=== PATIENT | female | born 1945 | race Caucasian/White ===

== ENCOUNTER → 2016-07-30 | Outpatient (CLI) | payer OTHER, BC | LOC: BMCIMAGING 09:39 | PROVIDERS: ATTEND Orthopaedic Surgery | DX: M25.551 Pain in right hip (principal) ==

== ENCOUNTER → 2017-01-20 | Outpatient (CLI) | payer OTHER, BC | LOC: BMCIMAGING 09:04 | PROVIDERS: ATTEND Orthopaedic Surgery | DX: M16.11 Unilateral primary osteoarthritis, right hip (principal) ==

== ENCOUNTER → 2017-03-10 | Outpatient (CLI) | payer OTHER, BC | LOC: BHFA 11:00 | PROVIDERS: ATTEND Internal Medicine Cardiovascular Disease | DX: R07.9 Chest pain, unspecified (principal) ==

== ENCOUNTER → 2017-06-25 | Outpatient (CLI) | payer OTHER | LOC: CIMAGING 07:24 | PROVIDERS: ATTEND Internal Medicine Gastroenterology | DX: K76.89 Other specified diseases of liver (principal); K22.4 Dyskinesia of esophagus | CPT/HCPCS: 76705-PO ==

== ENCOUNTER → 2017-12-01 | Outpatient (CLI) | payer OTHER | LOC: BMCIMAGING 10:18 | PROVIDERS: ATTEND Orthopaedic Surgery | DX: M25.551 Pain in right hip (principal); M16.11 Unilateral primary osteoarthritis, right hip ==

== ENCOUNTER → 2017-12-21 | Outpatient (CLI) | payer OTHER ==
[~2017-12-21] MED LIST: IOPAMIDOL (ISOVUE-300) 100 ML BTL ONE
== END ==
LOC: FIMAGING 13:04
PROVIDERS: ATTEND Internal Medicine
DX: R10.9 Unspecified abdominal pain (principal); K57.30 Diverticulosis of large intestine without perforation or abscess without bleeding; K42.9 Umbilical hernia without obstruction or gangrene
CPT/HCPCS: 74178; Q9967; 82565-PO

== ENCOUNTER 2018-01-02 23:11 | Inpatient (IN) | payer OTHER ==
[2018-01-02] MEDS ORDERED: NS 1,000 ML IV ONE (23:35)
[2018-01-02] MEDS ORDERED: fentaNYL 100 MCG/2 ML INJ IVP ONE (23:35)
[2018-01-02 23:41] LABS: PLATELET COUNT 213 10^3/uL (150-400)
[2018-01-03] MEDS ORDERED: IOPAMIDOL (ISOVUE 370) 100 ML BTL IV ONE
[2018-01-03] MEDS ORDERED: HYDROmorphONE/DILAUDID 2 MG/ML INJ IVP ONE (00:28)
[2018-01-03] MEDS ORDERED: ONDANSETRON 4 MG/2 ML VIAL IVP ONE (00:29)
--- NOTE | 2018-01-03 00:49 | EDPHY ---
HPI/HX/ROS/PE/MDM Narrative: CLINICAL IMPRESSION: Large reji-umbilical hernia, abdominal pain ASSESSMENT/PLAN: 72-year-old female with past medical history of hypothyroidism presents to the emergency department with increased abdominal pain tonight since 9:00 p.m. In the setting of abdominal pain x2 weeks. Patient had a CT scan on the of this month showing a new reji umbilical hernia and mesenteric edema. She has generalized abdominal pain today, more so to the periumbilical region and right lower quadrant on initial exam associated with guarding. She reports no fevers , chills, nausea, vomiting, diarrhea, or constipation. Labs show no leukocytosis, electrolyte imbalance, metabolic disturbance, and a mild renal insufficiency of 1.1. Repeat CT scan tonight shows increased size of a large 5 cm reji umbilical hernia that has increased by 4 mm of the last 2 weeks and now contains a portion of the transverse colon as well as mesenteric whirling. CT images reviewed with general surgeon, Dr. De La Vega. Patient is requiring IV analgesics for pain control and has elected to be admitted to the hospital for pain management and surgical discussion. Surgeon to see the patient in the ED. Patient comfortable and stable at time of reassessment. Discussed with Dr. Wilkinson. DIFFERENTIAL DX: Abdominal pain includes but not limited to acute incarcerated hernia, diverticulitis, cholecystitis, pancreatitis, SBO, gastroenteritis, constipation ED PROCEDURES: See imaging and lab results below ED COURSE: 12:45 a.m.: Received a call from Dr. Pendleton with Radiology. CT interpretation compared to CT on the revealing central mesenteric edema with a new periumbilical hernia that at the time contained a portion of the gastric antrum. Dr. Pendleton reports that that now contains a portion of the transverse colon with an attached portion of a mesenteric vessel. There is increased neck diastasis of 45 mm and mesenteric whirling which may indicate an internal hernia. Page out to surgery to discuss. 0100am. Discussed with Dr. De La Vega who reviewed the CT scan. He offered admission with surgical consultation and repair or d/c with pain meds and outpatient surgical consultation and elective repair. Patient and her are discussing options. CHIEF COMPLAINT: Abdominal pain HPI: This is a 72-year-old female who presents to the emergency department tonight with complaints of worsening abdominal pain since 9:00 p.m.. Patient has been struggling with generalized abdominal pain for the last 2 weeks. She had a CT scan on the 13 of this month ordered by her primary care showing a new reji umbilical hernia, changes possibly consistent with chronic pancreatitis which she and her primary care do not believe is valid, and diverticulosis. Tonight while watching TV she developed worsening pain and cramping. Pain radiates to her low back and pelvic region. No associated fever, chills, nausea, vomiting, diarrhea, bloody stools. She had a normal bowel movement this morning. She has been unable to pass flatus. No complaints of dysuria urgency or abnormal vaginal discharge. No history of SBO but she has had prior hysterectomy, appendectomy, and removal of a benign retroperitoneal cyst 1 year ago at the [facility]. PMH: Hypothyroidism Pertinent Past Surgical History: Appendectomy, hysterectomy, removal of benign retroperitoneal cyst Family History: Noncontributory Social History: , lives with her REVIEW OF SYSTEMS: All other systems negative Constitutional: No fever, no chills, appetite change. Cardiovascular: No chest pain, no palpitations. Respiratory: No cough, no shortness of breath. Gastrointestinal: no vomiting, diarrhea. Genitourinary: No hematuria, dysuria, flank pain, pelvic pain Musculoskeletal: joint swelling, joint pain, myalgias. Skin: No rashes, color change. Neurological: No headache, dizziness, weakness. PHYSICAL EXAM: General Appearance: Alert, oriented, appropriate, cooperative, NAD, well hydrated, non-toxic appearing, VSS, appears uncomfortable, tearful no hypoxia. Respiratory: There are no retractions, lungs are clear to auscultation. Cardiac: Regular rate and rhythm, no murmurs or gallops. Gastrointestinal: Abdomen is soft, generalized tenderness throughout, worse periumbilical and right lower quadrant. I am unable to appreciate an obvious periumbilical or ventral wall cyst but patient reports this is more noticeable when she stands up. bowel sounds normal, no masses/hernia, no rigidity. + guarding Neurological: [ Alert and oriented x 3, CN 2-12 grossly intact Skin: Warm, dry, no rashes, no nodules on palpation. Musculoskeletal: Extremities are symmetrical, full range of motion, no tenderness, deformity, swelling, or erythema. Psychiatric: Patient is oriented X 3, there is no agitation. MEDICAL DECISION MAKING: Patient was seen independently. Secondary supervising physician at time of evaluation was Dr Wilkinson. Diagnosis: Large periumbilical hernia, abdominal pain . New, requires workup Summary: See Assessment and Plan for summary of ED visit Clinical lab tests: ordered / reviewed. Independent visualization of images, tracing, or specimens: Yes. Review / Summarize previous medical records: Reviewed recent chart notes and previous CT report. Discussed patient with another provider: Dr. Pendleton, Dr. Wilkinson, Dr. De La Vega Patient Progress: Stable. (Rusty Moore) PHYSICIAN DOCUMENTATION: The patient was evaluated and managed by the Physician Datastage Architect. My co- signature indicates that I have reviewed this chart and I agree with the findings and plan of care as documented. I am the secondary supervising physician. (Callie Wilkinson) - Data Points Imaging Results: Imaging Impressions Abdomen CT 01/02/18 23:53 Impression: 1. There is a supraumbilical ventral wall hernia with slightly more pronounced diastasis than the study 2 weeks ago, and now containing a small "knuckle" of the transverse colon and an associated mesenteric vessel, as well as omental fat. 2. Interval development of central mesenteric edema with some subtle "whirling" of the mesenteric vasculature, raising the possibility of a concurrent developing internal hernia. 3. Stable hepatic cysts. 4. Constipation with descending colon and sigmoid colon diverticulosis, but no active diverticulitis. 5. By report, prior appendectomy, and evidence of a prior hysterectomy. The patient has also had resection of a prior large left retroperitoneal cyst since 2016. Findings were discussed with Rusty Moore PA-C at 0:41, on 01/03/2018. Laboratory Results: Laboratory Results 01/02/18 23:20 01/02/18 23:20 01/02/18 01/02/18 23:20 23:20 WBC 6.47 10^3/uL 10^3/uL (3.80-9.50) RBC 4.25 10^6/uL 10^6/uL (4.18-5.33) Hgb 13.3 g/dL g/dL (12.6-16.3) Hct 38.9 % % (38.0-47.0) MCV 91.5 fL fL (81.5-99.8) MCH 31.3 pg pg (27.9-34.1) MCHC 34.2 g/dL g/dL (32.4-36.7) RDW 13.7 % % (11.5-15.2) Plt Count 213 10^3/uL 10^3/uL (150-400) MPV 10.5 fL fL (8.7-11.7) Neut % (Auto) 41.1 % % (39.3-74.2) Lymph % (Auto) 45.7 % H % (15.0-45.0) [place] % (Auto) 8.8 % % (4.5-13.0) Eos % (Auto) 3.4 % % (0.6-7.6) Baso % (Auto) 0.8 % % (0.3-1.7) Nucleat RBC Rel Count 0.0 % % (0.0-0.2) Absolute Neuts (auto) 2.66 10^3/uL 10^3/uL (1.70-6.50) Absolute Lymphs (auto) 2.96 10^3/uL 10^3/uL (1.00-3.00) Absolute Monos (auto) 0.57 10^3/uL 10^3/uL (0.30-0.80) Absolute Eos (auto) 0.22 10^3/uL 10^3/uL (0.03-0.40) Absolute Basos (auto) 0.05 10^3/uL 10^3/uL (0.02-0.10) Absolute Nucleated RBC 0.00 10^3/uL 10^3/uL (0-0.01) Immature Gran % 0.2 % % (0.0-1.1) Immature Gran # 0.01 10^3/uL 10^3/uL (0.00-0.10) Sodium 139 mEq/L mEq/L (135-145) Potassium 4.2 mEq/L mEq/L (3.3-5.0) Chloride 108 mEq/L mEq/L (97-110) Carbon Dioxide 22 mEq/l mEq/l (22-31) Anion Gap 9 mEq/L mEq/L (6-14) BUN 32 mg/dL H mg/dL (7-23) Creatinine 1.1 mg/dL H mg/dL (0.6-1.0) Estimated GFR 49 Glucose 101 mg/dL H mg/dL (70-100) Calcium 10.1 mg/dL mg/dL (8.5-10.4) Total Bilirubin 0.4 mg/dL mg/dL (0.1-1.4) Conjugated Bilirubin 0.2 mg/dL mg/dL (0.0-0.5) Unconjugated Bilirubin 0.2 mg/dL mg/dL (0.0-1.1) AST 16 IU/L IU/L (14-46) ALT 21 IU/L IU/L (9-52) Alkaline Phosphatase 75 IU/L IU/L (38-126) Total Protein 6.9 g/dL g/dL (6.3-8.2) Albumin 4.2 g/dL g/dL (3.5-5.0) Lipase 67 IU/L IU/L (23-300) Medications Given: Hydromorphone HCl (Dilaudid) 0.2 - 0.4 mg IVP Q1H PRN PRN Reason: Pain, Severe Unable to Take PO Stop: 01/13/18 01:30 Last Admin: 01/03/18 04:39 Dose: 0.4 mg Potassium Chloride/Dextrose/Sod Cl (D5w 1/2 Ns W/ 20 Kcl/L) 1,000 mls @ 100 mls /hr IV CONT MILLI Stop: 07/02/18 01:44 Last Admin: 01/03/18 02:51 Dose: 1,000 mls Discontinued Medications Fentanyl (Sublimaze) 50 mcg IVP EDNOW ONE Stop: 01/02/18 23:36 Last Admin: 01/02/18 23:40 Dose: 50 mcg Hydromorphone HCl (Dilaudid) 1 mg IVP EDNOW ONE Stop: 01/03/18 00:29 Last Admin: 01/03/18 00:35 Dose: 1 mg Sodium Chloride (Ns) 1,000 mls @ 0 mls/hr IV EDNOW ONE; Wide Open PRN Reason: Protocol Stop: 01/02/18 23:36 Last Admin: 01/02/18 23:42 Dose: 1,000 mls Ondansetron HCl (Zofran) 4 mg IVP EDNOW ONE Stop: 01/03/18 00:30 Last Admin: 01/03/18 00:33 Dose: 4 mg Promethazine HCl (Phenergan) 12.5 mg IVP EDNOW ONE Stop: 01/03/18 01:35 Last Admin: 01/03/18 01:36 Dose: 12.5 mg General Time Seen by Provider: 01/02/18 23:25 Initial Vital Signs: Initial Vital Signs Temperature (C) 36.3 C 01/02/18 23:15 Heart Rate 68 01/02/18 23:15 Respiratory Rate 20 01/02/18 23:15 Blood Pressure 156/82 H 01/02/18 23:15 O2 Sat (%) 99 01/02/18 23:15 O2 Delivery Mode Nasal Cannula O2 (L/minute) 2 Allergies/Adverse Reactions: latex Allergy (Verified 04/28/15 16:36) Home Medications: Medication Instructions Recorded Albuterol [Proventil Inhaler HFA 1 - 2 puffs IH Q4 #1 mdi 04/28/15 (*)] Codeine/Promethazine [Phenergan W/ 5 - 10 ml PO HS PRN #100 ml 04/28/15 Codeine Syrup] Levothyroxine 04/28/15 Doxycycline Calcium 01/02/18 Prilosec 01/02/18 Departure - Departure Disposition: [facility] Inpatient Acute Clinical Impression: Periumbilical hernia Abdominal pain Qualifiers: Abdominal location: periumbilical Qualified Code(s): R10.33 - Periumbilical pain Condition: Fair
[2018-01-03] MEDS ORDERED: PROMETHAZINE HCL 25 MG/ML INJ IVP PRN ×2 (01:31→13:17)
[2018-01-03] MEDS ORDERED: METOCLOPRAMIDE 10 MG/2 ML VIAL IVP PRN (01:31)
[2018-01-03] MEDS ORDERED: PROMETHAZINE HCL 25 MG/ML INJ ONE ×2 (01:33→13:57)
[2018-01-03] MEDS ORDERED: PROMETHAZINE HCL 25 MG/ML INJ IVP ONE (01:34)
--- NOTE | 2018-01-03 02:07 | GHP ---
DATE OF ADMISSION: 01/03/2018 CHIEF COMPLAINT: Abdominal pain. HISTORY OF PRESENT ILLNESS: This is a 72-year-old female, who over the last 3-4 weeks, has been havi ng abdominal pain. As an outpatient on the of this month, her PCP ordered a CT scan, which show ed an epigastric hernia consistent with an incisional hernia from her previous retroperitoneal mass e xcision performed in September of 2015. The patient states that she felt well earlier this evening, beg an to have some right lower quadrant pain. This pain persisted which prompted her presentation here. Here, in the emergency department, she has been medicated and feels somewhat better, although she s till complains of sort of vague pain almost everywhere, worse in the epigastrium with palpation. The re is no radiation. The pain is 7/10 in its worst intensity. It is 2 to 3 out of 10 after IV narcot ics. There are no associated nausea, vomiting, fevers, or chills. She mainly just wants the pain to go away. PAST MEDICAL HISTORY: Significant for rosacea, hypothyroid, asthma, and gout. PAST SURGICAL HISTORY: Appendectomy, hysterectomy, and a retroperitoneal mass excision. CURRENT MEDICATIONS: Include doxycycline, EpiPen, Levoxyl, nitroglycerin, omeprazole, ProAir, Metamu cil, and ranitidine. ALLERGIES: Animal dander, eggplant, kiwi. SOCIAL HISTORY: Here with . Denies illicit drug use. Retired. FAMILY HISTORY: Noncontributory. REVIEW OF SYSTEMS: A full 10-point review was performed. PHYSICAL EXAMINATION: VITAL SIGNS: Temperature is 36.3, blood pressure 144/70, heart rate of 60, an d she is 97% on 2 L nasal cannula. CONSTITUTIONAL: She appears tired, but otherwise comfortable. E YES: Her pupils are equal, round, reactive to light, and accommodation. Her extraocular movements a re intact. She has anicteric sclerae. EARS, NOSE, MOUTH, THROAT: She has dry mucous membranes. He r hearing is normal and her ears appear normal. CARDIOVASCULAR: She has a regular rate and rhythm w ithout any murmurs, rubs, or gallops. RESPIRATORY: She has no respiratory distress, rales, or rhonc hi. GI: She has hypoactive bowel sounds. She has an epigastric hernia consistent with CT scan, red ucible. Her abdomen is otherwise soft. Skin is warm, normal color. No rashes or abrasions. MUSCUL OSKELETAL: Full strength. No tenderness. Normal joint range of motion. NEUROLOGIC: She is alert and oriented x3. Her cranial nerves 2-12 are intact. PSYCH: She is interacting appropriately. She is not anxious or encephalopathic. LYMPH/HEME/IMMUNOLOGIC: She has no cervical, groin, or supracla vicular lymphadenopathy appreciated. LABS: Chemistry is remarkable for an elevated BUN and creatinine 32 and 1.1. H and H are stable at 13 and 39, white count is normal at 6, platelets are 213. IMAGING: Includes a CT scan of the abdomen and pelvis, the images of which were personally reviewed, which shows a 4.5 cm epigastric hernia containing transverse colon. No other significant findings. ASSESSMENT AND PLAN: 72-year-old female with incisional hernia containing bowel. I gave the patient the option, as she is nontoxic, to present as an outpatient versus inpatient repair. She would like to have it repaired as soon as possible and is continuing to have pain in the emergency room. We wi ll plan to admit her and plan for open incisional hernia repair as time permits. I discussed the pro cedure with her and her here in the emergency department today, and I discussed my plan with the provider taking care of the patient in the emergency room. /[id number]/MODL
[2018-01-03] MEDS: D5W 1/2 NS W/ 20 KCl/L 1,000 ML IV SCH (02:51)
[2018-01-03] MEDS: HYDROmorphONE/DILAUDID 1 MG/ML INJ IVP PRN ×5 (03:36→20:13)
[2018-01-03] MEDS: DOXYCYCLINE HYCLATE 100 MG CAP/TAB PO SCH (10:01)
[2018-01-03] MEDS: PANTOPRAZOLE SODIUM 40 MG TAB PO SCH (10:01)
--- NOTE | 2018-01-03 10:14 | PDHPUP ---
History & Physical Update H&P update statement: This history and physical update is based on an assessment of the patient which was completed after admission or registration (within 24 hours), but prior to the surgery/procedure. H&P update: H&P reviewed & patient examined, no change in patient's condition since H&P completed
--- NOTE | 2018-01-03 11:01 | ASMTCMCOM ---
CM Note CM Note Notes: Pt in for abd pain, large reji-umbilical hernia will have hernia repair. Pt resides with . No therapies ordered. Pt likely independent CM to follow. Date Signed: 01/03/2018 11:00 AM Electronically Signed By:HILARIO Mas
[2018-01-03] MEDS ORDERED: BUPIVACAINE 0.25% 10 ML SDV ONE (11:20)
[2018-01-03] MEDS ORDERED: BUPIVACAINE/EPI 0.25% 30 ML SDV ONE (11:23)
[2018-01-03] MEDS ORDERED: LR 1,000 ML IV ONE (11:31)
--- NOTE | 2018-01-03 11:45 | POSTANESTH ---
Post Anesthetic Evaluation Cardiovascular Status: Normal, Stable Respiratory Status: Normal, Stable Level of Consciousness/Mental Status: Can Participate in Eval, Moderately Sleepy Pain Control: Adequate, Prn Tx Ordered Nausea/Vomiting Control: Adequate, Prn Tx Ordered Complications Possibly Related to Anesthesia: None Noted
--- NOTE | 2018-01-03 11:50 | PDANEPAE ---
ANE History of Present Illness 72 yo female with incisional hernia containing transverse colon for open ventral hernia repair today. ANE Past Medical History - Cardiovascular History Hx Hypertension: No Hx Arrhythmias: No Hx Chest Pain: No Hx Coronary Artery / Peripheral Vascular Disease: No Hx CHF / Valvular Disease: No Hx Palpitations: No - Pulmonary History Hx COPD: No Hx Asthma/Reactive Airway Disease: Yes Hx Recent Upper Respiratory Infection: No Hx Oxygen in Use at Home: No Hx Sleep Apnea: Yes Sleep Apnea Screening Result - Last Documented: Positive - Endocrine History Hx Diabetes: No Hypothyroid: Yes Hyperthyroid: No Obesity: no - Renal History Hx Renal Disorders: No - Liver History Hx Hepatic Disorders: No - GI History Hx Gastrointestinal Disorders: Yes Gastrointestinal History Comment: GERD - Other Health History Other Health History: gout ANE Review of Systems Review of Systems: - Systems Cardiac: Reports: no symptoms Respiratory: Reports: no symptoms Gastrointestinal: Reports: abdominal pain ANE Patient History - Allergies Allergies/Adverse Reactions: latex Allergy (Verified 04/28/15 16:36) - Home Medications Home Medications: Levothyroxine [Synthroid 75 mcg (*)] 75 mcg PO DAILY06 04/28/15 [Last Taken ] Doxycycline Hyclate [Vibramycin 100 MG (*)] 100 mg PO DAILY 01/02/18 [Last Taken 01/02/18] Omeprazole 20 mg PO DAILY 01/02/18 [Last Taken 01/02/18] Estrogens,Conjugated [Premarin Vaginal (*)] 1 paulo VG AD 01/03/18 [Last Taken Unknown] Ibuprofen [Motrin (*)] 200 mg PO DAILY PRN 01/03/18 [Last Taken Unknown] Melatonin [Melatonin 3 MG (*)] 3 mg PO HS 01/03/18 [Last Taken Unknown] Psyllium Husk (with Sugar) [Metamucil Packet] 1 each PO DAILY 01/03/18 [Last Taken Unknown] - NPO status NPO Since - Liquids (Date): 01/02/18 NPO Since - Liquids (Time): 20:00 NPO Since - Solids (Date): 01/02/18 NPO Since - Solids (Time): 20:00 - Anes Hx Anes Hx: no prior problems - Smoking Hx Smoking Status: Never smoked ANE Labs/Vital Signs - Labs Result Diagrams: 01/02/18 23:20 01/02/18 23:20 - Vital Signs Blood Pressure: 100/53 Heart Rate: 56 Respiratory Rate: 16 O2 Sat (%): 98 Height: 170.18 cm Weight: 80.3 kg ANE Physical Exam - Airway Mallampati Score: Class 2 - Pulmonary Pulmonary: clear to auscultation - Cardiovascular Cardiovascular: regular rate and rhythym - ASA Status ASA Status: III ANE Anesthesia Plan Anesthesia Plan: general endotracheal anesthesia
[2018-01-03] MEDS ORDERED: ROCURONIUM 100 MG/10 ML VIAL ONE (11:56)
[2018-01-03] MEDS ORDERED: DEXAMETHASONE 4 MG/ML VIAL ONE (11:56)
[2018-01-03] MEDS ORDERED: fentaNYL 100 MCG/2 ML INJ ONE ×4 (11:56→13:57)
[2018-01-03] MEDS ORDERED: LIDOCAINE 2% 5 ML SDV ONE (11:56)
[2018-01-03] MEDS ORDERED: PROPOFOL/EMULSION 500 MG/50 ML BOTTLE IV ONE (11:56)
[2018-01-03] MEDS ORDERED: ceFAZolin 2 GM/DEXTROSE 100 ML IV ONE (12:00)
[2018-01-03] MEDS ORDERED: ePHEDrine SULFATE 25 MG/5 ML SYR ONE (12:11)
[2018-01-03] MEDS ORDERED: ONDANSETRON 4 MG/2 ML VIAL ONE (12:48)
[2018-01-03] MEDS ORDERED: KETOROLAC 30 MG/1 ML SDV ONE (13:08)
[2018-01-03] MEDS ORDERED: NEOSTIGMINE METHYLSULFATE 5 MG/5 ML SYR ONE (13:15)
[2018-01-03] MEDS ORDERED: GLYCOPYRROLATE 0.2 MG/1 ML VIAL ONE (13:15)
[2018-01-03] MEDS ORDERED: LR 250 ML IV PRN (13:17)
[2018-01-03] MEDS ORDERED: oxyCODONE IR 5 MG TAB PO PRN (13:17)
[2018-01-03] MEDS ORDERED: ALBUTEROL 3 ML DEYVIAL IH PRN (13:17)
[2018-01-03] MEDS ORDERED: DIAZEPAM 5 MG/ML 1 ML SYR IVP PRN (13:17)
[2018-01-03] MEDS ORDERED: NALOXONE HCL 0.4 MG/ML INJ IVP PRN (13:17)
[2018-01-03] MEDS ORDERED: ACETAMINOPHEN 500 MG TAB PO PRN (13:17)
--- NOTE | 2018-01-03 13:44 | POSTOPPROG ---
Post Op Note Date of Operation: 01/03/18 Surgeon: Rogelio De La Vega Petrographer: ORESTES Beavers Anesthesiologist: Daren Anesthesia: GET(General Endotracheal) Pre-op Diagnosis: incisional ventral hernia Post-op Diagnosis: same Procedure: ex-lap, incisional hernia repair with mesh Findings: 4x3cm defect, 9cm Symbotex mesh Inf/Abcess present in the surg proc area at time of surgery?: No EBL: Minimal Specimen(s): hernia sac
[2018-01-03] MEDS: fentaNYL 100 MCG/2 ML INJ IVP PRN ×2 (14:01→14:15)
--- NOTE | 2018-01-03 14:29 | PDMN ---
Medical Necessity Medical necessity: [facility] [place] [id number] Hernia Repair (Non-Hiatal): 72 yo s/p incisional ventral hernia repair w/ mesh, meets extended stay criteria for this procedure, admit to IP status.
[2018-01-03] MEDS ORDERED: oxyCODONE IR 5 MG TAB ONE (14:32)
[2018-01-03] MEDS ORDERED: ACETAMINOPHEN 500 MG TAB ONE (14:32)
[2018-01-03] MEDS: ACETAMINOPHEN 325 MG TAB PO PRN (20:13)
[2018-01-04] MEDS: MAGNESIUM HYDROXIDE 30 ML UDCUP PO PRN ×2 (00:04→17:33)
[2018-01-04] MEDS: oxyCODONE IR 5 MG TAB PO PRN ×3 (01:39→08:34)
[2018-01-04] MEDS: ACETAMINOPHEN 325 MG TAB PO PRN ×2 (04:24→11:35)
[2018-01-04] MEDS: LEVOTHYROXINE 75 MCG TAB PO SCH (04:24)
[2018-01-04] MEDS: HYDROmorphONE/DILAUDID 1 MG/ML INJ IVP PRN ×3 (04:27→22:20)
[2018-01-04] MEDS: DOXYCYCLINE HYCLATE 100 MG CAP/TAB PO SCH (08:35)
[2018-01-04] MEDS: PANTOPRAZOLE SODIUM 40 MG TAB PO SCH (08:35)
--- NOTE | 2018-01-04 09:14 | SOAPPROG ---
CARMELA Progress Note Assessment/Plan: Assessment: Plan: Subjective: 72yo F s/p ventral incisional hernia repair with mesh - VSS, HDS - WBC WNL - she looks a lot better today, ammonia distiller but better than pre op - she is motivated to go home, but needs to have more activity and eat as well as do better with her IS. If she checks these off she can go home Objective: Vital Signs Temp Pulse Resp BP Pulse Ox 36.7 C 63 15 102/51 L 96 01/04/18 07:16 01/04/18 07:16 01/04/18 07:16 01/04/18 07:16 01/04/18 07:16 Laboratory Results 01/04/18 04:13 01/04/18 04:13 01/03/18 01/04/18 01/05/18 05:59 05:59 05:59 Intake Total 1200 1891 Output Total 350 1615 Balance 850 276 ICD10 Worksheet Patient Problems: Problems Problem Status Onset Abdominal pain Acute Periumbilical hernia Acute
--- NOTE | 2018-01-04 10:03 | ASMTCMCOM ---
CM Note CM Note Notes: Met with patient and , confirmed there are no CM needs at this time. D/W RN. Patient will likely d/c home today independently. CM available for changes. Plan: Independent Date Signed: 01/04/2018 10:02 AM Electronically Signed By:Roro Bennett RN
[2018-01-04] MEDS: ONDANSETRON DISINTEGRATING 4 MG TAB PO PRN (11:35)
[2018-01-04] MEDS ORDERED: CYCLOBENZAPRINE 10 MG TAB PO PRN (13:22)
--- NOTE | 2018-01-04 16:15 | GOP ---
DATE OF OPERATION: 01/03/2018 SURGEON: Rogelio De La Vega MD BARREL SCRAPER: Shirlene Beavers, ORESTES. ANESTHESIA: General endotracheal. ANESTHESIOLOGIST: Dr. Lynette Keane PREOPERATIVE DIAGNOSIS: Incisional ventral hernia. POSTOPERATIVE DIAGNOSIS: Incisional ventral hernia. PROCEDURE PERFORMED: Exploratory laparotomy with incisional hernia repair with mesh. FINDINGS: A 4 x 3 cm defect successfully repaired and buttressed with a 9 cm round Symbotex covered mesh. SPECIMENS: Hernia sac. ESTIMATED BLOOD LOSS: 10 cc. DESCRIPTION OF PROCEDURE: The patient was greeted in the preoperative suite. Once again, risks, damaris efits, and alternatives were discussed. Consent was signed. She was then brought back to the operat dharmesh suite, placed on the OR table in supine position. After all anesthesia machines, including SCDs were on and functioning, [employer] Health Organization time-out was performed. After successful inductio n of general anesthesia, the patient's abdomen was prepped and draped in typical sterile fashion. I entered the abdomen via a supraumbilical cutdown. I carried this down through the subcutaneous tis rosemarie. I was superior to the hernia sac. I encountered the hernia defect at the level of the fascia h ere. The subcutaneous tissue was then opened circumferentially around it. The hernia sac was then e ntered sharply. Once inside the sac, it did not contain bowel at this time, just some preperitoneal fat and omental fat. I successfully excised the entire sac from the surrounding fascia and passed it off. The underlying fascia was then clean sharply. She had a significant amount of abdominal adhesions fr om her previous surgery. I was able to interrogate her transverse colon, which appeared normal; her stomach, which appeared normal. I eviscerated her small bowel out of the hernia itself and ran it fo r the majority and found no significant findings. It was then placed back within the abdominal cavit y. Given the defect, I elected a 9 cm round piece of covered mesh. It was then brought into the ope rative field. It was tacked in all the cardinal directions using interrupted 2-0 PDS sutures. After tacking it, I placed 4 additional tacks in between all of the other tack sites with additional 2-0 P DS sutures. The fascia was lying appropriately without any kinks or defects and it was flat up again st the abdominal wall. I then turned my attention towards closing the fascia, which was done with a #1 running PDS suture no ting excellent fascial reapproximation under minimal tension. Local anesthesia was infiltrated into all of the surrounding fascia. Subcutaneous tissue was irrigated. The fat was closed with a running 3-0 Vicryl, the skin with a running 4-0 Stratafix. Steri-Strips, Mastisol, and a sterile dressing w ere placed. The patient was then extubated in the operative suite and taken to the PACU in satisfact ory condition. DRAINS: None. COUNTS: All counts were reported as correct x2. /[id number]/MODL
--- NOTE | 2018-01-04 18:31 | SOAPPROG ---
SOAP Progress Note Assessment/Plan: Assessment: called because distended and in more pain vss wbc wnl walking passing flatus added simethicone can use IV pain meds Rec iv for breakthrough Plan: 01/04/18 18:31 Objective: Vital Signs Temp Pulse Resp BP Pulse Ox 36.9 C 67 15 115/65 94 01/04/18 15:24 01/04/18 15:24 01/04/18 15:24 01/04/18 15:24 01/04/18 15:24 Laboratory Results 01/04/18 04:13 01/04/18 04:13 01/03/18 01/04/18 01/05/18 05:59 05:59 05:59 Intake Total 1200 1891 500 Output Total 350 1615 Balance 850 276 500 ICD10 Worksheet Patient Problems: Problems Problem Status Onset Abdominal pain Acute Periumbilical hernia Acute
[2018-01-04] MEDS: SIMETHICONE 80 MG TAB CHEW PO SCH ×2 (19:16→22:16)
[2018-01-04] MEDS: ONDANSETRON 4 MG/2 ML VIAL IVP PRN ×2 (19:28→22:16)
[2018-01-05] MEDS: HYDROmorphONE/DILAUDID 1 MG/ML INJ IVP PRN ×3 (00:35→08:01)
[2018-01-05] MEDS: ONDANSETRON 4 MG/2 ML VIAL IVP PRN (04:12)
[2018-01-05] MEDS: LEVOTHYROXINE 75 MCG TAB PO SCH (05:59)
[2018-01-05] MEDS ORDERED: HYDROmorphONE/DILAUDID 6 MG/30 ML PCA IV PRN (07:26)
[2018-01-05] MEDS ORDERED: NALOXONE HCL 0.4 MG/ML INJ IVP PRN (07:26)
[2018-01-05] MEDS: D5W 1/2 NS W/ 20 KCl/L 1,000 ML IV SCH (08:23)
--- NOTE | 2018-01-05 08:37 | SOAPPROG ---
CARMELA Progress Note Assessment/Plan: Assessment: s/p ventral hernia repair on 01/03/2018 Ileus vs bowel obstruction NG tube May consider gastrograffin challenge May consider CT - patient hesitant to do repeat CT scan at this time. Not toxic so will go in stepwise manner. Explained that although can be ileus, do not want to miss a bowel obstruction and delay treatment NPO Hold home meds Will transfer to 3 E Will check on again mid day S: Had a tough night. Had 5 doses IV pain medications. Nausea and vomiting. Not passing flatus any longer O: Lying in bed, appears comfortable but still No increased work of breathing Regular rate Bowel sounds present and active Soft and distended Incision cdi, slightly more full to the left and superior to umbilicus but no recurrent hernia palpated. Plan: 01/04/18 18:31 01/05/18 08:32 Objective: Vital Signs Temp Pulse Resp BP Pulse Ox 37.7 C 81 20 139/73 H 90 L 01/05/18 08:17 01/05/18 08:17 01/05/18 08:17 01/05/18 08:17 01/05/18 08:17 Laboratory Results 01/05/18 04:15 01/05/18 04:15 01/04/18 01/05/18 01/06/18 05:59 05:59 05:59 Intake Total 1891 750 Output Total 1615 700 Balance 276 50 ICD10 Worksheet Patient Problems: Problems Problem Status Onset Abdominal pain Acute Periumbilical hernia Acute
[2018-01-05] MEDS: PANTOPRAZOLE SODIUM 40 MG VIAL IVP SCH (09:05)
[2018-01-05] MEDS: SIMETHICONE 80 MG TAB CHEW PO SCH ×4 (09:05→20:15)
[2018-01-06 05:15] LABS: PLATELET COUNT 166 10^3/uL (150-400)
[2018-01-06] MEDS: SIMETHICONE 80 MG TAB CHEW PO SCH ×4 (09:02→22:06)
[2018-01-06] MEDS: PANTOPRAZOLE SODIUM 40 MG VIAL IVP SCH (09:02)
--- NOTE | 2018-01-06 12:03 | SOAPPROG ---
CARMELA Progress Note Assessment/Plan: Assessment: s/p ventral hernia repair on 01/03/2018 Ileus vs bowel obstruction NG continues to have output. Gastrograffin challenge with contrast in colon. Passing scant flatus If does not improve over next 24-248 hours, will need to repeat CT scan. NPO Hold home meds S: Better night. softer. Scant flatus. Less pain O: Lying in bed, appears comfortable NG tube with 300 out in 3 hours No increased work of breathing, CTAB Regular rate Bowel sounds present Much softer with slight distension Incision cdi, slightly more full to the left and superior to umbilicus but no recurrent hernia palpated. No tenderness today Plan: 01/04/18 18:31 01/05/18 08:32 01/06/18 12:02 Objective: Vital Signs Temp Pulse Resp BP Pulse Ox 36.4 C 65 18 106/57 L 94 01/06/18 08:00 01/06/18 08:00 01/06/18 08:00 01/06/18 08:00 01/06/18 08:00 Laboratory Results 01/06/18 04:31 01/06/18 04:31 01/05/18 01/06/18 01/07/18 05:59 05:59 05:59 Intake Total 750 Output Total 700 2100 Balance 50 -2100 ICD10 Worksheet Patient Problems: Problems Problem Status Onset Abdominal pain Acute Periumbilical hernia Acute
[2018-01-06] MEDS ORDERED: BISACODYL 10 MG SUPP PR PRN (13:29)
[2018-01-06] MEDS ORDERED: PHENOL 177 ML THROAT SPRAY PO PRN (13:30)
[2018-01-06] MEDS ORDERED: CEPACOL LOZENGE PO PRN (13:30)
--- NOTE | 2018-01-06 14:39 | ASMTCMCOM ---
CM Note CM Note Notes: Reviewed chart, pt developed an ileus/sbo, conservative management at this time. Pt lives at home with and should otherwise be independent. CM available for any changes. DC Plan: Independent Date Signed: 01/06/2018 02:38 PM Electronically Signed By:Tierney Maynard RN
[2018-01-06] MEDS ORDERED: GLYCERIN ADULT 1 EACH SUPP PR PRN (16:26)
[2018-01-07 05:27] LABS: PLATELET COUNT 156 10^3/uL (150-400)
[2018-01-07] MEDS: PANTOPRAZOLE SODIUM 40 MG VIAL IVP SCH (08:20)
[2018-01-07] MEDS: SIMETHICONE 80 MG TAB CHEW PO SCH ×4 (08:20→21:07)
[2018-01-07] MEDS: 1/2 NS 1,000 ML IV SCH ×2 (11:46→21:40)
--- NOTE | 2018-01-07 12:30 | SOAPPROG ---
SOAP Progress Note Assessment/Plan: Assessment: 72yo F s/p ventral hernia repair - ileus vs SBO. Having flatus and BM now - passed NG clamp trial earlier, will remove. sips and chips - pain controlled, better than previous. Abdomen remains soft - will hopefully continue to make progress, WBC still WNL. Plan: 01/07/18 12:29 Subjective: NG causing most distress Objective: Vital Signs Temp Pulse Resp BP Pulse Ox 37.1 C 95 19 101/57 L 96 01/07/18 11:49 01/07/18 11:49 01/07/18 11:49 01/07/18 11:49 01/07/18 11:49 Laboratory Results 01/07/18 04:54 01/06/18 04:31 01/06/18 01/07/18 01/08/18 05:59 05:59 05:59 Output Total 2100 510 350 Balance -2100 -934 -350 ICD10 Worksheet Patient Problems: Problems Problem Status Onset Abdominal pain Acute Periumbilical hernia Acute
[2018-01-08] MEDS: ONDANSETRON DISINTEGRATING 4 MG TAB PO PRN (00:55)
[2018-01-08 05:29] LABS: PLATELET COUNT 166 10^3/uL (150-400)
[2018-01-08] MEDS: ACETAMINOPHEN 325 MG TAB PO PRN (06:27)
[2018-01-08 07:10] VITALS: BP 110/56
[2018-01-08] MEDS: 1/2 NS 1,000 ML IV SCH (07:31)
[2018-01-08] MEDS: SIMETHICONE 80 MG TAB CHEW PO SCH (08:13)
[2018-01-08] MEDS: PANTOPRAZOLE SODIUM 40 MG VIAL IVP SCH (08:13)
--- NOTE | 2018-01-08 11:04 | SOAPPROG ---
SOAP Progress Note Assessment/Plan: Assessment: STATUS POST VENTRAL HERNIA REPAIR/WOUND HEALING WELL/MINIMAL PAIN/WANTS TO GO HOME AFEBRILE/VITAL SIGNS STABLE CHEST CLEAR/COR REGULAR RHYTHM/ABDOMEN SOFT NONTENDER/HEENT NONICTERIC Plan: HOME TODAY/INSTRUCTIONS GIVEN TO FOLLOW UP WITH DR. WESTON / PRESCRIPTION FOR PERCOCET 01/08/18 11:02 Objective: Vital Signs Temp Pulse Resp BP Pulse Ox 37.4 C 61 14 110/56 L 92 01/08/18 07:08 01/08/18 07:08 01/08/18 07:08 01/08/18 07:08 01/08/18 07:08 Laboratory Results 01/08/18 04:48 01/06/18 04:31 01/07/18 01/08/18 01/09/18 05:59 05:59 05:59 Intake Total 1716 Output Total 850 350 Balance -850 1366 ICD10 Worksheet Patient Problems: Problems Problem Status Onset Abdominal pain Acute Periumbilical hernia Acute
--- NOTE | 2018-01-12 18:40 | GDS ---
ADMITTING DIAGNOSIS: Incisional hernia. SECONDARY DIAGNOSES: 1. Postoperative ileus. 2. Hypothyroidism. 3. Asthma. 4. Gout. REASON FOR ADMISSION: This is a 72-year-old woman who presented to the emergency room complaining of abdominal pain. She had a CT scan performed which showed an incisional hernia, she was admitted for surgical intervention, pain control, and observation. HOSPITAL COURSE: She was taken to the operating room by Dr. Rogelio De La Vega on 01/03/2018 for an exp loratory laparotomy with repair of incisional hernia. On postoperative day #1 she developed increase d distention and abdominal pain. On postoperative day #2, an NG tube was placed with 1 L of fluid im mediately out. Postoperative day #3, she had a Gastrografin challenge test which did show contrast m oving through the colon. On postoperative day #4, an NG clamp trial was performed which she passed a nd her NG tube was removed. Her diet was advanced. On postoperative day #5 she was tolerating a lig ht diet, pain was well controlled and she did not have any nausea or vomiting. She was ambulating in dependently and ready for discharge. DISCHARGE CONDITION: She is being discharged home in stable condition. Pain is well controlled, yandel erating regular diet, ambulating independently. DISCHARGE MEDICATIONS: Prescription for Percocet. Instructed to resume home medications. Please se e EMR for further details. DISCHARGE INSTRUCTIONS AND FOLLOWUP: She will follow up in [address] Rogelio De La Vega. No heavy lifting, pushing, or pulling x6 weeks after surgery. She may shower with the wound uncovered. She understands to call with any worsening symptoms, questions or concerns. /[id number]/MODL
== END 2018-01-08 11:34 | disposition home or self-care (01) | DRG 355 ==
LOC: OBSVTOIN 01-03 01:34 → F3N 01-03 02:40 → F3E 01-05 08:17
PROVIDERS: ADMIT Surgery; ATTEND Surgery
PROC: 0WUF0JZ Supplement Abdominal Wall with Synthetic Substitute, Open Approach (ICD-10-PCS; principal; 2018-01-03 11:45)
DX: K43.2 Incisional hernia without obstruction or gangrene (principal); E86.9 Volume depletion, unspecified; E03.9 Hypothyroidism, unspecified; J45.909 Unspecified asthma, uncomplicated; M10.9 Gout, unspecified; L71.9 Rosacea, unspecified
CPT/HCPCS: 96374; C1781; J0690; J1100; J1170; J1885; J2405; J2550; J2704; J2710; J2765; J3010; Q9967

== ENCOUNTER 2018-01-09 05:09 | Inpatient (IN) | payer OTHER ==
[2018-01-09] MEDS ORDERED: NS 1,000 ML IV ONE (05:42)
[2018-01-09] MEDS ORDERED: PROMETHAZINE HCL 25 MG/ML INJ IVP ONE ×3 (05:42→07:54)
--- NOTE | 2018-01-09 06:24 | EDPHY ---
H & P Stated Complaint: abd distention recent admit for illius Time Seen by Provider: 01/09/18 06:24 HPI/ROS: HPI The patient presents with abdominal distension and nausea which have been present since about 4:00 p.m. Yesterday. The patient was admitted to the hospital from January 04 until January 08 just yesterday. She underwent ventral hernia repair with Dr. De La Vega complicated by ileus versus small- bowel obstruction improved with conservative measures in the hospital. At about 0 1 or 2:00 p.m. Yesterday she ate some potato soup with disc its. At about 4:00 p.m. She developed nausea and severe heartburn which continued throughout the evening. She reports abdominal bloating without any vomiting. At about 5:30 a.m. She had a small bowel movement. REVIEW OF SYSTEMS 10 systems were reviewed and negative with the exception of the elements mentioned in the history of present illness. PMHx: Ventral hernia repair on January 04 Soc Hx: Here with her , lives at home PHYSICAL General Appearance: Alert, uncomfortable appearing Eyes: Pupils equal and round no pallor or injection ENT, Mouth: Mucous membranes moist Respiratory: There are no retractions, lungs are clear to auscultation Cardiovascular: Regular rate and rhythm Gastrointestinal: Abdomen is slightly distended, tender in lower quadrants Neurological: A&O, moves all extremities Skin: Warm and dry, no rashes Musculoskeletal: Neck is supple non tender Extremities: symmetrical, full range of motion Psychiatric: Patient is oriented X 3, there is no agitation Source: Patient Exam Limitations: No limitations - Personal History Current Tetanus/Diphtheria Vaccine: Yes Current Tetanus Diphtheria and Acellular Pertussis (TDAP): Yes - Medical/Surgical History Hx Asthma: Yes Hx Chronic Respiratory Disease: No Hx Diabetes: No Hx Cardiac Disease: No Hx Renal Disease: No Hx Cirrhosis: No Hx Alcoholism: No Hx HIV/AIDS: No Hx Splenectomy or Spleen Trauma: No Other PMH: hypothyroid. abd surgeries. illeus 12/26 - Social History Smoking Status: Never smoked Constitutional: Initial Vital Signs Temperature (C) 36.8 C 01/09/18 05:23 Heart Rate 68 01/09/18 05:23 Respiratory Rate 18 01/09/18 05:23 Blood Pressure 147/76 H 01/09/18 05:23 O2 Sat (%) 92 01/09/18 05:23 O2 Delivery Mode Nasal Cannula O2 (L/minute) 3 Allergies/Adverse Reactions: latex Allergy (Verified 04/28/15 16:36) Home Medications: Medication Instructions Recorded Levothyroxine [Synthroid 75 mcg 75 mcg PO DAILY06 04/28/15 (*)] Doxycycline Hyclate [Vibramycin 100 mg PO DAILY 01/02/18 100 MG (*)] Omeprazole 20 mg PO DAILY 01/02/18 Estrogens,Conjugated [Premarin 1 paulo VG AD 01/03/18 Vaginal (*)] Ibuprofen [Motrin (*)] 200 mg PO DAILY PRN 01/03/18 Melatonin [Melatonin 3 MG (*)] 3 mg PO HS 01/03/18 Psyllium Husk (with Sugar) 1 each PO DAILY 01/03/18 [Metamucil Packet] Medical Decision Making - Diagnostics Imaging Results: KUB single view shows no clear air-fluid levels, similar to previous study from yesterday, interpreted by me, radiology interpretation is pending. Imaging: I viewed and interpreted images myself Differential Diagnosis: 72-year-old female who is postoperative from ventral hernia repair complicated by ileus, discharged yesterday, now returns with increased nausea and abdominal distension. This is concerning for small bowel obstruction versus ileus. In the emergency department, patient received IV fluids and antiemetics with some improvement in her symptoms. Labs were checked and were unremarkable. KUB looks unchanged from yesterday. I consulted with Dr. Westbrook from General surgery. He will see the patient in the emergency department. He requests CT scan. I ordered the CT scan, however that wire technician inform me that because the patient received Gastrografin recently and this still shows up on her KUB, the CT scan will have too much artifact to be able to interpret. I will hold off on the CT scan for now. I have ordered a bed for the patient in the hospital as I presume she will require admission. - Data Points Laboratory Results: Laboratory Results 01/09/18 05:10 01/09/18 05:40 01/09/18 01/09/18 05:40 05:10 WBC 5.84 10^3/uL 10^3/uL (3.80-9.50) RBC 3.68 10^6/uL L 10^6/uL (4.18-5.33) Hgb 11.4 g/dL L g/dL (12.6-16.3) Hct 33.2 % L % (38.0-47.0) MCV 90.2 fL fL (81.5-99.8) MCH 31.0 pg pg (27.9-34.1) MCHC 34.3 g/dL g/dL (32.4-36.7) RDW 12.8 % % (11.5-15.2) Plt Count 212 10^3/uL 10^3/uL (150-400) MPV 11.0 fL fL (8.7-11.7) Neut % (Auto) 70.4 % % (39.3-74.2) Lymph % (Auto) 17.5 % % (15.0-45.0) [place] % (Auto) 9.1 % % (4.5-13.0) Eos % (Auto) 2.6 % % (0.6-7.6) Baso % (Auto) 0.2 % L % (0.3-1.7) Nucleat RBC Rel Count 0.0 % % (0.0-0.2) Absolute Neuts (auto) 4.12 10^3/uL 10^3/uL (1.70-6.50) Absolute Lymphs (auto) 1.02 10^3/uL 10^3/uL (1.00-3.00) Absolute Monos (auto) 0.53 10^3/uL 10^3/uL (0.30-0.80) Absolute Eos (auto) 0.15 10^3/uL 10^3/uL (0.03-0.40) Absolute Basos (auto) 0.01 10^3/uL L 10^3/uL (0.02-0.10) Absolute Nucleated RBC 0.00 10^3/uL 10^3/uL (0-0.01) Immature Gran % 0.2 % % (0.0-1.1) Immature Gran # 0.01 10^3/uL 10^3/uL (0.00-0.10) Sodium 139 mEq/L mEq/L (135-145) Potassium 3.6 mEq/L mEq/L (3.3-5.0) Chloride 102 mEq/L mEq/L (97-110) Carbon Dioxide 29 mEq/l mEq/l (22-31) Anion Gap 8 mEq/L mEq/L (6-14) BUN 15 mg/dL mg/dL (7-23) Creatinine 0.8 mg/dL mg/dL (0.6-1.0) Estimated GFR > 60 Glucose 98 mg/dL mg/dL (70-100) Calcium 9.7 mg/dL mg/dL (8.5-10.4) Total Bilirubin 0.6 mg/dL mg/dL (0.1-1.4) AST 14 IU/L IU/L (14-46) ALT 18 IU/L IU/L (9-52) Alkaline Phosphatase 62 IU/L IU/L (38-126) Total Protein 6.0 g/dL L g/dL (6.3-8.2) Albumin 3.3 g/dL L g/dL (3.5-5.0) Medications Given: Discontinued Medications Sodium Chloride (Ns) 1,000 mls @ 0 mls/hr IV EDNOW ONE; Wide Open PRN Reason: Protocol Stop: 01/09/18 05:43 Last Admin: 01/09/18 05:46 Dose: 1,000 mls Promethazine HCl (Phenergan) 12.5 mg IVP ONCE ONE Stop: 01/09/18 05:43 Last Admin: 01/09/18 05:46 Dose: 12.5 mg Departure - Departure Disposition: [facility] Inpatient Acute Clinical Impression: Nausea, Ileus, History of ventral hernia repair Condition: Fair Referrals: Patient,NotPresent [Unknown] - As per Instructions
[2018-01-09 06:58] LABS: PLATELET COUNT 212 10^3/uL (150-400)
[2018-01-09] MEDS ORDERED: PROMETHAZINE HCL 25 MG/ML INJ IVP PRN (10:45)
[2018-01-09] MEDS: D5W 1/2 NS W/ 20 KCl/L 1,000 ML IV SCH ×2 (11:12→18:15)
--- NOTE | 2018-01-09 11:32 | SOAPPROG ---
SOAP Progress Note Assessment/Plan: Assessment: ADMIT FOR POSSIBLE RECURRENT SMALL-BOWEL OBSTRUCTION 72-YEAR-OLD FEMALE WITH RECENT LYSIS OF ADHESIONS AND VENTRAL HERNIA REPAIR NOW WITH RECURRENT EMESIS AND ABDOMINAL CRAMPS AND NAUSEA AND MILD DISTENTION HEENT NONICTERIC CHEST CLEAR COR REGULAR RHYTHM ABDOMEN SOFT, WELL-HEALING MIDLINE INCISION, MILDLY DISTENDED BUT MINIMALLY TENDER/ACTIVE BOWEL SOUNDS Plan: NG/IVS/OBSERVATION/SURGERY IF NOT IMPROVING 01/09/18 11:30 Objective: Vital Signs Temp Pulse Resp BP Pulse Ox 36.4 C 65 14 148/63 H 96 01/09/18 09:18 01/09/18 09:18 01/09/18 09:18 01/09/18 09:18 01/09/18 09:18 01/08/18 01/09/18 01/10/18 05:59 05:59 05:59 Intake Total 1000 Balance 1000 ICD10 Worksheet Patient Problems: Problems Problem Status Onset History of ventral hernia repair Acute Ileus Acute Nausea Acute Abdominal pain Acute Periumbilical hernia Acute
[2018-01-09] MEDS: HYDROmorphONE/DILAUDID 1 MG/ML INJ IVP PRN ×3 (11:49→21:21)
--- NOTE | 2018-01-09 14:42 | PDMN ---
Medical Necessity Medical necessity: MCG M200 Ileus: 72 yo w/ recent hernia repair presents w/ ileus on KUB. Surgery consulted, NG tube placed, NPO, IVF, will monitor, possibly surgery.
[2018-01-09] MEDS ORDERED: ESTROGENS,CONJUGATED 30 GM CRTUBE VG PRN (15:15)
[2018-01-09] MEDS ORDERED: D10W 1,000 ML IV PRN (15:24)
[2018-01-09] MEDS: ONDANSETRON 4 MG/2 ML VIAL IVP PRN (15:37)
--- NOTE | 2018-01-09 15:48 | ASMTCMCOM ---
CM Note CM Note Notes: Case Management Chart Review for Discharge Support: Patient is a 72 year old female who presented to [facility] ED for abdominal distention and nausea. The patient was discharged home independently yesterday, ventral hernia repair on 01/04/18. CM to follow. D/C Plan: TBD. Date Signed: 01/09/2018 03:48 PM Electronically Signed By:Ttaa Dominique
[2018-01-09 16:00] LABS: PLATELET COUNT 195 10^3/uL (150-400)
[2018-01-09 16:08] LABS: INR 1.02 (0.83-1.16); PROTIME(PATIENT) 13.6 SEC (12.0-15.0)
[2018-01-09] MEDS ORDERED: ALTEPLASE 2 MG VIAL IVP PRN (16:56)
[2018-01-10] MEDS: D5W 1/2 NS W/ 20 KCl/L 1,000 ML IV SCH ×4 (00:51→21:47)
[2018-01-10] MEDS: HYDROmorphONE/DILAUDID 1 MG/ML INJ IVP PRN ×4 (03:12→20:29)
[2018-01-10 05:22] LABS: PLATELET COUNT 175 10^3/uL (150-400)
[2018-01-10 05:31] LABS: INR 1.14 (0.83-1.16); PROTIME(PATIENT) 14.8 SEC (12.0-15.0)
[2018-01-10] MEDS: LEVOTHYROXINE 75 MCG TAB PO SCH (07:07)
--- NOTE | 2018-01-10 13:43 | GCON ---
REFERRING PHYSICIAN: Rogelio De La Vega MD CHIEF COMPLAINT: Ileus/bowel obstruction. HISTORY OF PRESENT ILLNESS: I have been asked to see this 72-year-old woman in consultation from Dr. De La Vega for evaluation of bowel obstruction/prolonged ileus. This 72-year-old woman had presented to the hospital with 3 to 4 week history of abdominal pain. She was seen as an outpatient and had a CT scan that showed an epigastric hernia consistent with incisional hernia from previous retroperitoneal mass excision performed September 2015. She began having significant abdominal pain and right lower quadrant pain. Pain was persistent and presented to the emergency department. Was given pain medication. Pain was described as 7/10. She underwent surgery on January 03. She had an exploratory laparotomy with incisional hernia repair with mesh. She was discharged home after several days postop; however, she returned with difficulty eating and found to have dilated loops of small bowel. Patient did have NG placed with NG tube decompression. She has had no flatus since admission. Abdominal x-ray shows persistent dilated loops of small bowel consistent with ileus or small bowel obstruction. PAST MEDICAL HISTORY: Remarkable for rosacea, hypothyroidism, asthma, gout. PAST SURGICAL HISTORY: Remarkable for appendectomy, hysterectomy, retroperitoneal mass excision (benign). MEDICATIONS: Prior to admission, include doxycycline, EpiPen, Levoxyl, nitroglycerin, omeprazole, ProAir, Metamucil, and ranitidine. ALLERGIES: Animal dander, eggplant, kiwi. SOCIAL HISTORY: She is , retired. No significant alcohol use or smoking. FAMILY HISTORY: Negative as it pertains to chief complaint. REVIEW OF SYSTEMS: Negative 10 systems other than mentioned HPI. PHYSICAL EXAM: VITAL SIGNS: 108/57, heart rate 59, respiratory rate 16, 97% sat 2 L nasal cannula. GENERAL: Uncomfortable appearing woman lying in bed in no acute distress. NG tube in place. HEENT/NECK: Supple. Normocephalic, atraumatic. EOMI. Neck is supple. No cervical adenopathy. Mucous membranes moist. NG in the nares. LUNGS: Clear. CARDIAC: Normal S1, S2 without murmur. ABDOMEN: Absent bowel sounds. EXTREMITIES: Without clubbing, cyanosis, edema. NEURO: Nonfocal. SKIN: Warm, dry, intact. PSYCH : Alert and oriented x3 with normal affect. LABORATORY/IMAGING: Hemoglobin 10.2, hematocrit 31. Serum chemistries: Serum sodium 138, potassium 4.0, chloride 104, BUN of 10, creatinine 0.8. AST of 9, ALT of 13, 8. Abdominal x-ray from 01/10/2018, abnormally dilated loops of small bowel, increasing in size from yesterday indicate a progression of small bowel obstruction versus localized ileus. IMPRESSION: A 72-year-old woman with either slow to resolve ileus or mechanical obstruction. RECOMMENDATIONS: 1. Continue on IV fluids. 2. Management of electrolytes. 3. NG decompression. 4. Daily abdominal x-ray. 5. Consider repeat imaging to evaluate for small bowel obstruction, either CT scan with oral contrast or barium study. 6. Patient is to be started on TPN due to prolonged lack of enteral nutrition. We will follow with you. /[id number]/MODL MTDD
--- NOTE | 2018-01-10 15:33 | SOAPPROG ---
SOAP Progress Note Assessment/Plan: Assessment: 72yo F s/p ventral hernia repair c/b ileus, sent home Wednesday and re-admitted Wednesday c SBO vs ileus - events over last 24hrs reviewed - NGT in place, initially had large output. Slowing - abdomen is soft, she has some bowel sounds but no bowel function - PICC in place, start TPN tonight - gastro consult, assistance appreciated - will re-eval in the AM. CT scan still not ideal given large amount of contrast in colon. If she still isnt making progress tomorrow will plan for laparoscopy to eval whats going on. Discussed with patient and . Plan: 01/10/18 15:29 Subjective: lot of NG irritation, abdomen doing better Objective: Vital Signs Temp Pulse Resp BP Pulse Ox 36.6 C 59 L 16 108/57 L 97 01/10/18 11:43 01/10/18 11:59 01/10/18 11:59 01/10/18 11:59 01/10/18 11:59 Laboratory Results 01/10/18 05:00 01/10/18 05:00 01/09/18 01/10/18 01/11/18 05:59 05:59 05:59 Intake Total 1999 1839 Output Total 2250 610 Balance -250 1229 PT 14.8 SEC (12.0-15.0) 01/10/18 05:00 INR 1.14 (0.83-1.16) 01/10/18 05:00 ICD10 Worksheet Patient Problems: Problems Problem Status Onset History of ventral hernia repair Acute Ileus Acute Nausea Acute Abdominal pain Acute Periumbilical hernia Acute
[2018-01-10] MEDS: TPN W/ FAMOTIDINE 1 EA BAG IV SCH (21:46)
[2018-01-11] MEDS: HYDROmorphONE/DILAUDID 1 MG/ML INJ IVP PRN ×4 (01:30→18:09)
[2018-01-11] MEDS: LEVOTHYROXINE 75 MCG TAB PO SCH (05:08)
[2018-01-11 05:54] LABS: PLATELET COUNT 169 10^3/uL (150-400)
[2018-01-11 06:53] LABS: INR 1.08 (0.83-1.16); PROTIME(PATIENT) 14.2 SEC (12.0-15.0)
--- NOTE | 2018-01-11 07:48 | SOAPPROG ---
SOAP Progress Note Assessment/Plan: Assessment: Ileus vs SBO. Patient with NG tube in place. Started on TPN. No BS, No flatus or stool. 2 way abdominal x-ray with contrast in the colon. Plan: - Can try fleets or Dulcolax suppository to help stimulate BM - Patient told to ambulate, get up out of bed - Repeat abdominal x-ray after suppository of enema - CT of Abdomen/pelvis would be helpful, however there is contrast remaining in colon - Potential for laparoscopy by surgery if not improved. 01/11/18 07:44 Subjective: CC: SBO Not much improved. No flatus or stool Started on TPN Objective: Vital Signs Temp Pulse Resp BP Pulse Ox 36.6 C 58 L 16 110/58 L 96 01/11/18 07:33 01/11/18 07:33 01/11/18 07:33 01/11/18 07:33 01/11/18 07:33 Laboratory Results 01/11/18 05:25 01/11/18 05:25 01/10/18 01/11/18 01/12/18 05:59 05:59 05:59 Intake Total 1999 48 Output Total 2250 3085 Balance -250 1806 PT 14.2 SEC (12.0-15.0) 01/11/18 06:35 INR 1.08 (0.83-1.16) 01/11/18 06:35 Generic Name Dose Route Start Last Admin Trade Name Freq PRN Reason Stop Dose Admin Alteplase, Recombinant 2 mg 01/09/18 16:56 Cathflo Activase IVP 07/08/18 16:55 PRN PRN Per PICC line policy Estrogens Conjugated 1 gm 01/09/18 15:15 Premarin Vaginal VG 07/08/18 15:14 AD PRN VAGINAL SYMPTOMS Hydromorphone HCl 0.2 - 0.4 mg 01/09/18 10:44 01/11/18 04:11 Dilaudid IVP 01/19/18 10:43 0.4 mg Q2HRS PRN Administration Pain, Severe Unable to Take PO Dextrose 1,000 mls @ 0 mls/hr 01/09/18 15:24 D10w IV 07/08/18 15:23 PRN PRN TPN interruption As Directed Potassium Chloride/Dextrose/Sod Cl 1,000 mls @ 100 mls/hr 01/10/18 21:00 04/25 21:47 D5w 1/2 Ns W/ 20 Kcl/L IV 07/09/18 20:59 1,000 mls CONT MILLI Administration Levothyroxine Sodium 75 mcg 01/10/18 06:00 01/11/18 05:08 Synthroid PO 07/09/18 05:59 Not Given DAILY06 MILLI Ondansetron HCl 4 mg 01/09/18 10:44 01/09/18 15:37 Zofran IVP 07/08/18 10:43 4 mg Q4 PRN Administration Nausea/Vomiting, Use 1st Promethazine HCl 12.5 mg 01/09/18 10:45 Phenergan IVP 07/08/18 10:44 Q6HRS PRN Nausea/Vomiting, Can't Take PO Total Parenteral Nutrition 1 ea 01/09/18 15:30 Pharmacy To DoseTpn [facility] 07/08/18 15:29 AD [facility] Total Parenteral Nutrition 1 ea 01/10/18 21:00 01/10/18 21:46 Hyperalimentation IV 07/09/18 20:59 1 ea DAILY21 MILLI Administration Discontinued Medications Generic Name Dose Route Start Last Admin Trade Name Freq PRN Reason Stop Dose Admin Sodium Chloride 1,000 mls @ 0 mls/hr 01/09/18 05:42 01/09/18 05:46 Ns IV 01/09/18 05:43 1,000 mls EDNOW ONE Administration Protocol Wide Open Potassium Chloride/Dextrose/Sod Cl 1,000 mls @ 150 mls/hr 01/09/18 10:45 04/25 15:21 D5w 1/2 Ns W/ 20 Kcl/L IV 01/10/18 20:59 1,000 mls CONT MILLI Administration Promethazine HCl 12.5 mg 01/09/18 05:42 01/09/18 05:46 Phenergan IVP 01/09/18 05:43 12.5 mg ONCE ONE Administration Promethazine HCl 12.5 mg 01/09/18 07:50 01/09/18 07:53 Phenergan IVP 01/09/18 07:51 Not Given ONCE ONE Promethazine HCl 12.5 mg 01/09/18 07:54 01/09/18 08:00 Phenergan IVP 01/09/18 07:55 12.5 mg EDNOW ONE Administration Physical Exam - Physical Exam General Appearance: alert, no apparent distress Respiratory: lungs clear Cardiac/Chest: regular rate, rhythm Abdomen: soft, other (No BS) Skin: normal color, warm/dry Neuro/Psych: alert, normal mood/affect, oriented x 3 ICD10 Worksheet Patient Problems: Problems Problem Status Onset History of ventral hernia repair Acute Ileus Acute Nausea Acute Abdominal pain Acute Periumbilical hernia Acute
[2018-01-11] MEDS ORDERED: BISACODYL 10 MG SUPP PR ONE (07:49)
[2018-01-11] MEDS: D5W 1/2 NS W/ 20 KCl/L 1,000 ML IV SCH ×2 (08:48→18:46)
--- NOTE | 2018-01-11 09:50 | SOAPPROG ---
CARMELA Progress Note Assessment/Plan: Assessment: 72yo F s/p ventral hernia repair c/b ileus, sent home Wednesday and re-admitted Wednesday c SBO vs ileus - VSS, HDS - only pain today is from NGT. Output over last 24hrs >1000. Taking a fair amt of ice chips - abdomen very soft and benign, had flatus and BM this AM - will hold off on OR, patient wants to cont current management. Will attempt clamp trial either later this afternoon versus tomorrow - continue ambulation in the meantime. Plan: 01/10/18 15:29 01/11/18 09:49 Subjective: feels better, having BMs Objective: Vital Signs Temp Pulse Resp BP Pulse Ox 36.6 C 58 L 16 110/58 L 96 01/11/18 07:33 01/11/18 07:33 01/11/18 07:33 01/11/18 07:33 01/11/18 07:33 Laboratory Results 01/11/18 05:25 01/11/18 05:25 01/10/18 01/11/18 01/12/18 05:59 05:59 05:59 Intake Total 1999 4890 Output Total 2250 3085 300 Balance -250 1806 -300 PT 14.2 SEC (12.0-15.0) 01/11/18 06:35 INR 1.08 (0.83-1.16) 01/11/18 06:35 ICD10 Worksheet Patient Problems: Problems Problem Status Onset History of ventral hernia repair Acute Ileus Acute Nausea Acute Abdominal pain Acute Periumbilical hernia Acute
[2018-01-11] MEDS: TPN W/ FAMOTIDINE 1 EA BAG IV SCH (20:43)
[2018-01-12] MEDS: HYDROmorphONE/DILAUDID 1 MG/ML INJ IVP PRN ×3 (02:15→22:05)
[2018-01-12] MEDS: LEVOTHYROXINE 75 MCG TAB PO SCH (05:21)
[2018-01-12 05:41] LABS: PLATELET COUNT 200 10^3/uL (150-400)
[2018-01-12 05:48] LABS: INR 1.02 (0.83-1.16); PROTIME(PATIENT) 13.6 SEC (12.0-15.0)
--- NOTE | 2018-01-12 07:32 | SOAPPROG ---
SOAP Progress Note Assessment/Plan: Assessment: Had small BM and is having some BS. NG tube has been clamped. Feeling better. Ileus improving Since improving surgery will not bring back to OR at present and continue to monitor Plan: - NG tube clamped - Can repeat Dulcolax suppository today - Continue supportive care 01/12/18 07:32 Subjective: CC: Ileus vs SBO Feeling better, had small BM and flatus. Having BS. Objective: Vital Signs Temp Pulse Resp BP Pulse Ox 36.6 C 70 16 147/69 H 93 01/12/18 07:18 01/12/18 07:18 01/12/18 07:18 01/12/18 07:18 01/12/18 07:18 Laboratory Results 01/12/18 05:15 01/11/18 01/12/18 01/13/18 05:59 05:59 05:59 Intake Total 4804 1760 Output Total 3085 1950 Balance 1806 -190 PT 13.6 SEC (12.0-15.0) 01/12/18 05:15 INR 1.02 (0.83-1.16) 01/12/18 05:15 Generic Name Dose Route Start Last Admin Trade Name Freq PRN Reason Stop Dose Admin Alteplase, Recombinant 2 mg 01/09/18 16:56 Cathflo Activase IVP 07/08/18 16:55 PRN PRN Per PICC line policy Estrogens Conjugated 1 gm 01/09/18 15:15 Premarin Vaginal VG 07/08/18 15:14 AD PRN VAGINAL SYMPTOMS Hydromorphone HCl 0.2 - 0.4 mg 01/09/18 10:44 01/12/18 02:15 Dilaudid IVP 01/19/18 10:43 0.4 mg Q2HRS PRN Administration Pain, Severe Unable to Take PO Dextrose 1,000 mls @ 0 mls/hr 01/09/18 15:24 D10w IV 07/08/18 15:23 PRN PRN TPN interruption As Directed Potassium Chloride/Dextrose/Sod Cl 1,000 mls @ 100 mls/hr 01/10/18 21:00 05/26 18:46 D5w 1/2 Ns W/ 20 Kcl/L IV 07/09/18 20:59 1,000 mls CONT MILLI Administration Levothyroxine Sodium 75 mcg 12/03/18 06:00 01/12/18 05:21 Synthroid PO 07/09/18 05:59 75 mcg DAILY06 MILLI Administration Ondansetron HCl 4 mg 01/09/18 10:44 01/09/18 15:37 Zofran IVP 07/08/18 10:43 4 mg Q4 PRN Administration Nausea/Vomiting, Use 1st Promethazine HCl 12.5 mg 01/09/18 10:45 Phenergan IVP 07/08/18 10:44 Q6HRS PRN Nausea/Vomiting, Can't Take PO Total Parenteral Nutrition 1 ea 01/09/18 15:30 Pharmacy To DoseTpn MISC 07/08/18 15:29 AD MILLI Total Parenteral Nutrition 1 ea 01/10/18 21:00 01/11/18 20:43 Hyperalimentation IV 07/09/18 20:59 1 ea DAILY21 MILLI Administration Discontinued Medications Generic Name Dose Route Start Last Admin Trade Name Freq PRN Reason Stop Dose Admin Bisacodyl 10 mg 01/11/18 07:49 01/11/18 08:48 Dulcolax Rectal [place] 01/11/18 07:50 10 mg ONCE ONE Administration Sodium Chloride 1,000 mls @ 0 mls/hr 01/09/18 05:42 01/09/18 05:46 Ns IV 01/09/18 05:43 1,000 mls EDNOW ONE Administration Protocol Wide Open Potassium Chloride/Dextrose/Sod Cl 1,000 mls @ 150 mls/hr 01/09/18 10:45 04/25 15:21 D5w 1/2 Ns W/ 20 Kcl/L IV 01/10/18 20:59 1,000 mls CONT MILLI Administration Promethazine HCl 12.5 mg 01/09/18 05:42 01/09/18 05:46 Phenergan IVP 01/09/18 05:43 12.5 mg ONCE ONE Administration Promethazine HCl 12.5 mg 01/09/18 07:50 01/09/18 07:53 Phenergan IVP 01/09/18 07:51 Not Given ONCE ONE Promethazine HCl 12.5 mg 01/09/18 07:54 01/09/18 08:00 Phenergan IVP 01/09/18 07:55 12.5 mg EDNOW ONE Administration Physical Exam - Physical Exam General Appearance: alert, no apparent distress Respiratory: lungs clear Cardiac/Chest: regular rate, rhythm Abdomen: soft, other (hypoactive BS) Skin: normal color, warm/dry Neuro/Psych: alert, normal mood/affect, oriented x 3 ICD10 Worksheet Patient Problems: Problems Problem Status Onset History of ventral hernia repair Acute Ileus Acute Nausea Acute Abdominal pain Acute Periumbilical hernia Acute
[2018-01-12] MEDS: D5W 1/2 NS W/ 20 KCl/L 1,000 ML IV SCH (10:28)
--- NOTE | 2018-01-12 10:31 | SOAPPROG ---
SOAP Progress Note Assessment/Plan: Assessment/Plan: 72yo F s/p ventral hernia repair c/b ileus, sent home Wednesday and re-admitted Wednesday c SBO vs ileus SBO/ileus. Improving. NG clamped since last night. No residual when we briefly returned tube to suction this am. Will advance to clear liquids with tube in place but clamped. If tolerates this then plan to d/c NGT later today. Discussed with RN. Patient wanting to advance very slowly. Could have full liquids vs lite diet this evening if doing well. S: passing some gas. had a BM. No pain. No N/V. O: alert, nad mmm, ng in place ctab anteriorly rrr abd soft, +BS 01/12/18 10:26 Objective: Vital Signs Temp Pulse Resp BP Pulse Ox 36.6 C 70 16 147/69 H 93 01/12/18 07:18 01/12/18 07:18 01/12/18 07:18 01/12/18 07:18 01/12/18 07:18 Laboratory Results 01/12/18 05:15 01/12/18 05:15 01/11/18 01/12/18 01/13/18 05:59 05:59 05:59 Intake Total 4891 1760 Output Total 3085 1950 Balance 1806 -190 PT 13.6 SEC (12.0-15.0) 01/12/18 05:15 INR 1.02 (0.83-1.16) 01/12/18 05:15 ICD10 Worksheet Patient Problems: Problems Problem Status Onset History of ventral hernia repair Acute Ileus Acute Nausea Acute Abdominal pain Acute Periumbilical hernia Acute
--- NOTE | 2018-01-12 12:23 | ASMTCMCOM ---
CM Note CM Note Notes: Pts case discussed w/ JOVANNY Greenfield. Pts NG got pulled today. Pt started on clears. Pt will most likely d/c independent when medically stable. CM available for changes. Plan: Independent Date Signed: 01/12/2018 12:23 PM Electronically Signed By:NYASIA Gallardo
[2018-01-12] MEDS: ONDANSETRON 4 MG/2 ML VIAL IVP PRN (17:42)
[2018-01-12] MEDS: TPN W/ FAMOTIDINE 1 EA BAG IV SCH (21:24)
[2018-01-12] MEDS: RANITIDINE HCL 150 MG/10 ML UDCUP PO PRN (22:00)
[2018-01-13] MEDS: LEVOTHYROXINE 75 MCG TAB PO SCH (04:59)
[2018-01-13] MEDS ORDERED: BISACODYL 10 MG SUPP PR PRN (07:39)
--- NOTE | 2018-01-13 07:43 | SOAPPROG ---
SOAP Progress Note Assessment/Plan: Assessment: Ileus improving slowly. NG out, not tolerating liquids very well. Having HB, no nausea. Only had small BM with barium. Plan: - Diet as tolerated - Dulcolax 10 mg pr as needed - PPI for HB, started on Pantoprazole yesterday and getting Ranidine as needed 01/13/18 07:39 Subjective: CC: Post op ileus NG out , not feeling as well as yesterday. No appetite. Having reflux and HB. She is having BS and small stool. Passed barium. Objective: Vital Signs Temp Pulse Resp BP Pulse Ox 36.8 C 72 16 145/74 H 90 L 01/13/18 04:00 01/13/18 04:00 01/13/18 04:00 01/13/18 04:00 01/13/18 04:00 Laboratory Results 01/12/18 05:15 01/12/18 05:15 01/12/18 01/13/18 01/14/18 05:59 05:59 05:59 Intake Total 1760 3098 Output Total 1950 600 Balance -190 2498 PT 13.6 SEC (12.0-15.0) 01/12/18 05:15 INR 1.02 (0.83-1.16) 01/12/18 05:15 Generic Name Dose Route Start Last Admin Trade Name Shyann PRN Reason Stop Dose Admin Alteplase, Recombinant 2 mg 01/09/18 16:56 Cathflo Activase IVP 07/08/18 16:55 PRN PRN Per PICC line policy Bisacodyl 10 mg 01/13/18 07:39 Dulcolax Rectal UT 07/12/18 07:38 DAILY PRN Constipation Estrogens Conjugated 1 gm 01/09/18 15:15 Premarin Vaginal VG 07/08/18 15:14 AD PRN VAGINAL SYMPTOMS Hydromorphone HCl 0.2 - 0.4 mg 01/09/18 10:44 01/12/18 22:05 Dilaudid IVP 01/19/18 10:43 0.4 mg Q2HRS PRN Administration Pain, Severe Unable to Take PO Dextrose 1,000 mls @ 0 mls/hr 01/09/18 15:24 D10w IV 07/08/18 15:23 PRN PRN TPN interruption As Directed Potassium Chloride/Dextrose/Sod Cl 1,000 mls @ 100 mls/hr 01/10/18 21:00 06/25 10:28 D5w 1/2 Ns W/ 20 Kcl/L IV 07/09/18 20:59 1,000 mls CONT MILLI Administration Levothyroxine Sodium 75 mcg 01/10/18 06:00 01/13/18 04:59 Synthroid PO 07/09/18 05:59 75 mcg DAILY06 MILLI Administration Ondansetron HCl 4 mg 01/09/18 10:44 01/12/18 17:42 Zofran IVP 07/08/18 10:43 4 mg Q4 PRN Administration Nausea/Vomiting, Use 1st Pantoprazole Sodium 40 mg 01/13/18 09:00 Protonix PO 07/12/18 08:59 DAILY MILLI Promethazine HCl 12.5 mg 01/09/18 10:45 Phenergan IVP 07/08/18 10:44 Q6HRS PRN Nausea/Vomiting, Can't Take PO Ranitidine HCl 150 mg 01/12/18 21:45 01/12/18 22:00 Zantac PO 07/11/18 21:44 150 mg DAILY PRN Administration ACID REFLUX Total Parenteral Nutrition 1 ea 01/09/18 15:30 Pharmacy To DoseTpn MISC 07/08/18 15:29 AD MILLI Total Parenteral Nutrition 1 ea 01/10/18 21:00 01/12/18 21:24 Hyperalimentation IV 07/09/18 20:59 1 ea DAILY21 MILLI Administration Discontinued Medications Generic Name Dose Route Start Last Admin Trade Name Freq PRN Reason Stop Dose Admin Bisacodyl 10 mg 01/11/18 07:49 01/11/18 08:48 Dulcolax Rectal UT 01/11/18 07:50 10 mg ONCE ONE Administration Sodium Chloride 1,000 mls @ 0 mls/hr 01/09/18 05:42 01/09/18 05:46 Ns IV 01/09/18 05:43 1,000 mls EDNOW ONE Administration Protocol Wide Open Potassium Chloride/Dextrose/Sod Cl 1,000 mls @ 150 mls/hr 01/09/18 10:45 04/25 15:21 D5w 1/2 Ns W/ 20 Kcl/L IV 01/10/18 20:59 1,000 mls CONT MILLI Administration Promethazine HCl 12.5 mg 01/09/18 05:42 01/09/18 05:46 Phenergan IVP 01/09/18 05:43 12.5 mg ONCE ONE Administration Promethazine HCl 12.5 mg 01/09/18 07:50 01/09/18 07:53 Phenergan IVP 01/09/18 07:51 Not Given ONCE ONE Promethazine HCl 12.5 mg 01/09/18 07:54 01/09/18 08:00 Phenergan IVP 01/09/18 07:55 12.5 mg EDNOW ONE Administration Physical Exam - Physical Exam General Appearance: alert, no apparent distress Respiratory: lungs clear, normal breath sounds Cardiac/Chest: regular rate, rhythm Abdomen: normal bowel sounds, non-tender, soft Skin: normal color, warm/dry Neuro/Psych: alert, oriented x 3 ICD10 Worksheet Patient Problems: Problems Problem Status Onset History of ventral hernia repair Acute Ileus Acute Nausea Acute Abdominal pain Acute Periumbilical hernia Acute
[2018-01-13] MEDS: PANTOPRAZOLE SODIUM 40 MG TAB PO SCH (08:23)
[2018-01-13] MEDS: RANITIDINE HCL 150 MG/10 ML UDCUP PO PRN (08:26)
[2018-01-13] MEDS ORDERED: ACETAMINOPHEN 325 MG TAB PO PRN (12:51)
[2018-01-13] MEDS ORDERED: CALCIUM CARBONATE 500 MG CHEWABLE TAB PO PRN (12:51)
--- NOTE | 2018-01-13 13:01 | SOAPPROG ---
SOAP Progress Note Assessment/Plan: Assessment: 72yo F s/p ventral hernia repair c/b ileus, sent home Wednesday and re-admitted Wednesday c SBO vs ileus - VSS, HDS - no pain, having some GERD which is a chronic issue - having BMs, passing flatus. - go slow. Cont TPN, will dc once taking adequate PO - poss home tomorrow vs Sat Plan: 01/10/18 15:29 01/11/18 09:49 01/13/18 13:00 Subjective: NG out, tolerating clears. Passing gas Objective: Vital Signs Temp Pulse Resp BP Pulse Ox 36.4 C 73 14 136/66 H 92 01/13/18 08:00 01/13/18 08:00 01/13/18 08:00 01/13/18 08:00 01/13/18 08:00 Laboratory Results 01/12/18 05:15 01/12/18 05:15 01/12/18 01/13/18 01/14/18 05:59 05:59 05:59 Intake Total 1760 3098 Output Total 1950 600 Balance -190 2498 PT 13.6 SEC (12.0-15.0) 01/12/18 05:15 INR 1.02 (0.83-1.16) 01/12/18 05:15 ICD10 Worksheet Patient Problems: Problems Problem Status Onset History of ventral hernia repair Acute Ileus Acute Nausea Acute Abdominal pain Acute Periumbilical hernia Acute
[2018-01-13] MEDS: IBUPROFEN 600 MG TAB PO PRN ×2 (13:17→20:28)
[2018-01-13] MEDS ORDERED: diphenhydrAMINE 12.5 MG/5 ML UDCUP PO PRN (20:15)
[2018-01-13] MEDS ORDERED: RANITIDINE HCL 150 MG/10 ML UDCUP PO PRN (20:30)
[2018-01-13] MEDS: TPN W/ FAMOTIDINE 1 EA BAG IV SCH (20:41)
[2018-01-13] MEDS ORDERED: diphenhydrAMINE 25 MG CAP PO PRN (22:00)
[2018-01-14] MEDS: IBUPROFEN 600 MG TAB PO PRN ×2 (04:16→12:04)
[2018-01-14] MEDS: LEVOTHYROXINE 75 MCG TAB PO SCH (04:16)
--- NOTE | 2018-01-14 08:53 | SOAPPROG ---
SOAP Progress Note Assessment/Plan: Assessment: Clinically improved, tolerating PO Plan: - Diet as tolerated - Further management per surgery - Will sign off pleas call with further questions. 01/14/18 08:51 Subjective: CC: Post op ileus. Doing much better, tolerating PO, has had BM and flatus Objective: Vital Signs Temp Pulse Resp BP Pulse Ox 36.3 C 70 16 108/48 L 93 01/14/18 08:00 01/14/18 08:00 01/14/18 08:00 01/14/18 08:00 01/14/18 08:00 Laboratory Results 01/12/18 05:15 01/12/18 05:15 01/13/18 01/14/18 01/15/18 05:59 05:59 05:59 Intake Total 3098 2941 Output Total 600 1800 Balance 2498 1141 PT 13.6 SEC (12.0-15.0) 01/12/18 05:15 INR 1.02 (0.83-1.16) 01/12/18 05:15 Generic Name Dose Route Start Last Admin Trade Name Umairq PRN Reason Stop Dose Admin Acetaminophen 650 mg 01/13/18 12:51 Tylenol PO 07/12/18 12:50 Q4HRS PRN Pain, Mild/Fever, Can Take PO Alteplase, Recombinant 2 mg 01/09/18 16:56 Cathflo Activase IVP 07/08/18 16:55 PRN PRN Per PICC line policy Bisacodyl 10 mg 01/13/18 07:39 Dulcolax Rectal IN 07/12/18 07:38 DAILY PRN Constipation Calcium Carbonate 500 - 1,000 mg 01/13/18 12:51 01/13/18 19:48 Tums PO 07/12/18 12:50 1,000 mg Q4H PRN Administration UPSET STOMACH Diphenhydramine HCl 25 mg 01/13/18 22:00 Benadryl PO 07/12/18 21:59 HS PRN Sleep/Insomnia Estrogens Conjugated 1 gm 01/09/18 15:15 Premarin Vaginal VG 07/08/18 15:14 AD PRN VAGINAL SYMPTOMS Hydromorphone HCl 0.2 - 0.4 mg 01/09/18 10:44 01/12/18 22:05 Dilaudid IVP 01/19/18 10:43 0.4 mg Q2HRS PRN Administration Pain, Severe Unable to Take PO Dextrose 1,000 mls @ 0 mls/hr 01/09/18 15:24 D10w IV 07/08/18 15:23 PRN PRN TPN interruption As Directed Potassium Chloride/Dextrose/Sod Cl 1,000 mls @ 100 mls/hr 01/10/18 21:00 06/25 10:28 D5w 1/2 Ns W/ 20 Kcl/L IV 07/09/18 20:59 1,000 mls CONT MILLI Administration Ibuprofen 600 mg 01/13/18 12:51 01/14/18 04:16 Motrin PO 07/12/18 12:50 600 mg Q6HRS PRN Administration Pain, Mild Levothyroxine Sodium 75 mcg 01/10/18 06:00 01/14/18 04:16 Synthroid PO 07/09/18 05:59 75 mcg DAILY06 MILLI Administration Ondansetron HCl 4 mg 01/09/18 10:44 01/12/18 17:42 Zofran IVP 07/08/18 10:43 4 mg Q4 PRN Administration Nausea/Vomiting, Use 1st Pantoprazole Sodium 40 mg 01/13/18 09:00 01/13/18 08:23 Protonix PO 07/12/18 08:59 40 mg DAILY MILLI Administration Promethazine HCl 12.5 mg 01/09/18 10:45 Phenergan IVP 07/08/18 10:44 Q6HRS PRN Nausea/Vomiting, Can't Take PO Ranitidine HCl 150 mg 01/13/18 20:30 01/13/18 20:29 Zantac PO 07/11/18 21:44 150 mg BID PRN Administration ACID REFLUX Total Parenteral Nutrition 1 ea 01/09/18 15:30 Pharmacy To DoseTpn MISC 07/08/18 15:29 AD MILLI Total Parenteral Nutrition 1 ea 01/10/18 21:00 01/13/18 20:41 Hyperalimentation IV 07/09/18 20:59 1 ea DAILY21 MILLI Administration Discontinued Medications Generic Name Dose Route Start Last Admin Trade Name Freq PRN Reason Stop Dose Admin Bisacodyl 10 mg 01/11/18 07:49 01/11/18 08:48 Dulcolax Rectal IN 01/11/18 07:50 10 mg ONCE ONE Administration Diphenhydramine HCl 25 mg 01/13/18 20:15 01/13/18 20:28 Benadryl Oral Liquid PO 07/12/18 20:14 25 mg HS PRN Administration Sleep/Insomnia Sodium Chloride 1,000 mls @ 0 mls/hr 01/09/18 05:42 01/09/18 05:46 Ns IV 01/09/18 05:43 1,000 mls EDNOW ONE Administration Protocol Wide Open Potassium Chloride/Dextrose/Sod Cl 1,000 mls @ 150 mls/hr 01/09/18 10:45 04/25 15:21 D5w 1/2 Ns W/ 20 Kcl/L IV 01/10/18 20:59 1,000 mls CONT MILLI Administration Promethazine HCl 12.5 mg 01/09/18 05:42 01/09/18 05:46 Phenergan IVP 01/09/18 05:43 12.5 mg ONCE ONE Administration Promethazine HCl 12.5 mg 01/09/18 07:50 01/09/18 07:53 Phenergan IVP 01/09/18 07:51 Not Given ONCE ONE Promethazine HCl 12.5 mg 01/09/18 07:54 01/09/18 08:00 Phenergan IVP 01/09/18 07:55 12.5 mg EDNOW ONE Administration Ranitidine HCl 150 mg 01/12/18 21:45 01/13/18 08:26 Zantac PO 07/11/18 21:44 150 mg DAILY PRN Administration ACID REFLUX Physical Exam - Physical Exam General Appearance: alert, no apparent distress Respiratory: lungs clear, normal breath sounds Abdomen: normal bowel sounds, non-tender, soft Skin: normal color, warm/dry Neuro/Psych: alert, normal mood/affect, oriented x 3 ICD10 Worksheet Patient Problems: Problems Problem Status Onset History of ventral hernia repair Acute Ileus Acute Nausea Acute Abdominal pain Acute Periumbilical hernia Acute
[2018-01-14] MEDS: PANTOPRAZOLE SODIUM 40 MG TAB PO SCH (09:39)
--- NOTE | 2018-01-14 09:39 | SOAPPROG ---
CARMELA Progress Note Assessment/Plan: Assessment: 72yo F s/p ventral hernia repair c/b ileus, sent home Wednesday and re-admitted Wednesday c SBO vs ileus - VSS, HDS - still has no pain - allow TPN to taper to off, do not renew - Reg diet, tolerating - planning home later today. Patient wants home RN, will set this up Plan: 01/10/18 15:29 01/11/18 09:49 01/13/18 13:00 01/14/18 09:39 Subjective: feeling well, no pain, no nausea. Tolerating diet Objective: Vital Signs Temp Pulse Resp BP Pulse Ox 36.3 C 70 16 108/48 L 93 01/14/18 08:00 01/14/18 08:00 01/14/18 08:00 01/14/18 08:00 01/14/18 08:00 Laboratory Results 01/12/18 05:15 01/13/18 01/14/18 01/15/18 05:59 05:59 05:59 Intake Total 3098 2941 Output Total 600 1800 Balance 2498 1141 PT 13.6 SEC (12.0-15.0) 01/12/18 05:15 INR 1.02 (0.83-1.16) 01/12/18 05:15 ICD10 Worksheet Patient Problems: Problems Problem Status Onset History of ventral hernia repair Acute Ileus Acute Nausea Acute Abdominal pain Acute Periumbilical hernia Acute
--- NOTE | 2018-01-14 09:41 | PDIAF ---
- Diagnosis Diagnosis: ileus s/p ventral hernia repair Code Status: Full Code - Medication Management Discharge Medications: electronically signed and located in the Home Medication List. - Orders Services needed: Home Care, Registered Nurse (needs BP monitoring) Home Care Face to Face: I certify that this patient was under my care and that I had the required [id number] encounter meeting the encounter requirements on the discharge day. My findings support the fact that the patient is homebound as defined in Home Care Face to Face Continued: CMS Chapter 7 Medicare Benefits Manual 30.1.1 , The condition of the patient is such that there exists a normal inability to leave home and consequently, leaving home would require a considerable and taxing effort. Diet Recommendation: no restrictions on diet - Follow Up Care Current Providers and Referrals: Patient,NotPresent [Unknown] - As per Instructions
[2018-01-14] MEDS: D5W 1/2 NS W/ 20 KCl/L 1,000 ML IV SCH (09:50)
--- NOTE | 2018-01-14 12:28 | ASMTLACE ---
LACE Length of stay for Answers: 4-6 days current admission Acuity / Level of Answers: Yes Care: Did the patient have an inpatient admission? Comorbidities - select Answers: Other Notes: Hypothyroid all that apply # of Emergency department Answers: 1-2 visits in the last 6 months Score: 9 Date Signed: 01/14/2018 12:27 PM Electronically Signed By:Tierney Maynard RN
--- NOTE | 2018-01-14 14:58 | ASMTCMCOM ---
CM Note CM Note Notes: Spoke with , wants pt to have HH RN f/u for bp. CM sent referral to [facility] and they can accept. DC Plan: Homecare/ [facility] (RN) Date Signed: 01/14/2018 12:24 PM Electronically Signed By:Tierney Maynard RN
--- NOTE | 2018-01-14 15:00 | ASMTDCNOTE ---
Case Management Discharge Discharge Order Complete? Answers: Yes Patient to Obtain Answers: Independently Medications Transportation Arranged Answers: Family/Friends Faxed Final Orders Answers: Yes Agency/Facility Transfer Answers: Yes Report Printed & Faxed to Receiving Agency Family Notified Answers: Yes Discharge Comments Notes: D/w MD, final orders faxed. [facility] notified. Date Signed: 01/14/2018 02:59 PM Electronically Signed By:Tierney Maynard RN
[2018-01-14 15:14] VITALS: BP 116/52
--- NOTE | 2018-01-14 15:43 | PDDCSUM ---
Discharge Summary Discharge Summary: DISCHARGE SUMMARY Date of Admission January 09, 2018 Date of Discharge January 14, 2018 DISCHARGE DIAGNOSES -ileus versus small-bowel obstruction status post ventral hernia repair with mesh HOSPITAL COURSE The patient was admitted from the ED after presenting with clinical signs of an ileus versus small-bowel obstruction. Briefly, the patient was discharged 1 day prior after an uneventful ventral hernia repair with mesh. The patient initially had nasogastric tube decompression and had high output, this subsequently slowed over the ensuing days. Her NG tube was eventually clamped for an extended amount of time and removed. Her diet was then advanced and well tolerated, she was having both flatus and bowel movements. She was tolerating a regular diet and had appropriate pain control DISCHARGE MEDICATIONS No new medications, all home medications restarted DISPOSITION Home FOLLOW UP Follow up with me in the office in 10-14 days for a general post-operative visit
--- NOTE | 2018-01-14 16:40 | ASDISCHSUM ---
Discharge Information Plan Status:Home with Home Health Medically Cleared to Leave: Discharge Date:01/14/2018 04:19 PM CM D/C Disposition:Home Health Service ADT D/C Disposition:Home, Routine, Self-Care Projected Discharge Date:01/14/2018 11:00 AM Transportation at D/C:Family Discharge Delay Reason: Follow-Up Date:01/14/2018 11:00 AM Discharge Slot: Final Diagnosis: Placement Information Referral Type:*Home Health Care Services Referral ID:[id number] Provider Name:Vishnu Palomo Address 1:[address] [place] Phone Number: Address 2: Fax Number: City:[place] Selection Factors: State:[place] Patient Contact Information Contact Name:SHAGUFTA Relationship: Address:[address] [address] Work Phone: City:[facility] Phone: State/Zip Code:[place] [address] Email: Financial Information Financial Class:Medicare Primary Plan Desc:MEDICARE INPATIENT Primary Plan Number:[id number] Secondary Plan Desc:[employer] INDEMNITY Secondary Plan Number:[id number] Assessment Information [facility] CM Progress Note CM Note CM Note Notes: Case Management Chart Review for Discharge Support: Patient is a 72 year old female who presented to [facility] ED for abdominal distention and nausea. The patient was discharged home independently yesterday, ventral hernia repair on 01/04/18. CM to follow. D/C Plan: TBD. Date Signed: 01/09/2018 03:48 PM Electronically Signed By:Tata Dominique LACE LACKing Length of stay for Answers: 4-6 days current admission Acuity / Level of Answers: Yes Care: Did the patient have an inpatient admission? Comorbidities - select Answers: Other Notes: Hypothyroid all that apply # of Emergency department Answers: 1-2 visits in the last 6 months Score: 9 Date Signed: 01/14/2018 12:27 PM Electronically Signed By:Tierney Maynard RN [facility] CM Progress Note CM Note CM Note Notes: Pts case discussed w/ JOVANNY Greenfield. Pts NG got pulled today. Pt started on clears. Pt will most likely d/c independent when medically stable. CM available for changes. Plan: Independent Date Signed: 01/12/2018 12:23 PM Electronically Signed By:NYASIA Gallardo [facility] CM Progress Note CM Note CM Note Notes: Spoke with , wants pt to have RN f/u for bp. CM sent referral to [facility] and they can accept. DC Plan: Homecare/ [facility] (JOVANNY) Date Signed: 01/14/2018 12:24 PM Electronically Signed By:Tierney Maynard RN Case Management Discharge Plan Note Case Management Discharge Discharge Order Complete? Answers: Yes Patient to Obtain Answers: Independently Medications Transportation Arranged Answers: Family/Friends Faxed Final Orders Answers: Yes Agency/Facility Transfer Answers: Yes Report Printed & Faxed to Receiving Agency Family Notified Answers: Yes Discharge Comments Notes: D/w , final orders faxed. [facility] notified. Date Signed: 01/14/2018 02:59 PM Electronically Signed By:Tierney Maynard RN Intervention Information Intervention Type:*IM-Signed Date of Service:01/14/2018 03:05 PM Patient Type:Inpatient Staff Member:Aileen Harrison Hours: Discipline: Severity: Comment:
== END 2018-01-14 16:19 | disposition home health service (06) | DRG 390 ==
LOC: F3E 09:14
PROVIDERS: ADMIT Surgery; ATTEND Surgery
PROC: 02H633Z Insertion of Infusion Device into Right Atrium, Percutaneous Approach (ICD-10-PCS; principal; 2018-01-10)
DX: K56.7 Ileus, unspecified (principal); K56.609 Unspecified intestinal obstruction, unspecified as to partial versus complete obstruction; E86.9 Volume depletion, unspecified; Z98.890 Other specified postprocedural states
CPT/HCPCS: 96374; C1751; J1170; J2405; J2550

== ENCOUNTER → 2018-04-05 | Outpatient (CLI) | payer OTHER | LOC: FIMAGING 08:18 | PROVIDERS: ATTEND Surgery | DX: K42.9 Umbilical hernia without obstruction or gangrene (principal); K76.89 Other specified diseases of liver; Z98.890 Other specified postprocedural states | CPT/HCPCS: 74177; Q9967 ==

== ENCOUNTER → 2018-06-16 | Outpatient (CLI) | payer OTHER | LOC: BMCIMAGING 09:08 | PROVIDERS: ATTEND Orthopaedic Surgery | DX: M25.552 Pain in left hip (principal) ==